=== PATIENT | male | born 1995 | race Caucasian/White ===

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

== ENCOUNTER 2017-07-18 18:59 | Emergency (ER) | payer BC, OTHER ==
[~2017-07-18] VITALS: Ht 172.7 cm; Wt 93.7 kg
[~2017-07-18 18:59] MED LIST: AMPH10TA2 PO; AMPH20TA2 PO; CHOL1000 PO; CLON0.1T12 PO; ENAL10TA88 PO; MULT-506 PO; TRAZ100T29 PO
[2017-07-18 19:06] VITALS: TEMP 36.8; Ht 172.7 cm; Wt 93.7 kg
[2017-07-18] MEDS ORDERED: DULO60CA44 PO (19:17)
--- NOTE | 2017-07-18 19:40 | DIAGNOSTIC IMAGING REPORT ---
LEFT HAND 3 VIEWS CLINICAL HISTORY: Left thumb injury. FINDINGS: 3 views of left hand are obtained. No prior studies are available for comparison at the time of dictation. The skeletal structures are well mineralized. No fracture is seen. The joint spaces of the hand are well-maintained. The overlying soft tissues are within normal limits. IMPRESSION: Unremarkable radiographic assessment of the left hand. Electronically signed by: Rahlu Adams M.D. 07/18/2017 7:39 PM Dictated Date/Time: 07/18/2017 7:38 PM
--- NOTE | 2017-07-18 19:52 | EMERGENCY ROOM VISIT NOTE ---
ED Visit Note First contact with patient: 19:08 CHIEF COMPLAINT: Left thumb injury one hour ago Patient is a [id number] 21-year-old white male who presents emergency department for evaluation of a left thumb injury. He was playing soccer, the ball came towards his face, and he put his hand up to protect himself. The ball struck his thumb, causing it to hyperextend. Patient denies hearing a cracking, snapping or popping sound at the time of the injury. He notes pain and swelling in the thumb extending into the hand. He applied ice. He did not have any medication for pain. He rates his discomfort a 6/10. He can move the thumb relatively normally. REVIEW OF SYSTEMS: Review of systems as per HPI. All other systems reviewed were negative. At least 6 systems reviewed. PMH: Electronic medical records are reviewed and summarized as above/below. See Problem List. SOCIAL HISTORY: Patient is a college student who lives locally. Nonsmoker. PHYSICAL EXAM: Vital Signs: Reviewed Nurse's notes. CONSTITUTIONAL: Patient is a well-appearing 21-year-old white male who is awake and alert and in no acute distress. MUSCULOSKELETAL: Examination of the left hand show swelling in the thenar eminence, over the first metacarpal, slight swelling over the first MCP joint. Patient does not have any pain over the IP joint. His pain over the proximal phalanx, MCP and the first metacarpal. Range of motion is essentially full. There is no gross ligamentous instability appreciated. There is no deformity. The skin is intact. EMERGENCY DEPARTMENT COURSE: X-rays of the left thumb were obtained, and were negative for acute fracture or bony abnormality. Patient was placed in a thumb spica lacer. Conservative care measures were discussed. He was encouraged to follow-up with [facility] if his symptoms are not improving. Differential diagnosis included fracture, sprain, contusion, dislocation, subluxation, among others. Blood pressure screening : Patient was found to have normal blood pressure on screening and does not require follow-up. Medication reconciliation: I attest that I have personally reviewed the patient' s current medication list. LEFT HAND 3 VIEWS CLINICAL HISTORY: Left thumb injury. FINDINGS: 3 views of left hand are obtained. No prior studies are available for comparison at the time of dictation. The skeletal structures are well mineralized. No fracture is seen. The joint spaces of the hand are well-maintained. The overlying soft tissues are within normal limits. IMPRESSION: Unremarkable radiographic assessment of the left hand. Problem List Medical Problems: (1) Dehydration Status: Resolved (2) Essential (Primary) Hypertension Status: Chronic (3) Facial abrasion Status: Resolved (4) Personal History Of Traumatic Brain Injury Status: Chronic (5) Rhabdomyolysis Status: Resolved (6) Syncope Status: Resolved Current/Historical Medications Scheduled Amphetamine-Dextroamphetamine 10MG (Adderall 10MG), 10 MG PO 1600 Amphetamine-Dextroamphetamine 20MG (Adderall 20MG), 40 MG PO DAILY Cholecalciferol (Vitamin D3), 500 UNITS PO DAILY Clonidine Hcl (Catapres), 1 TAB PO DIRECTED Duloxetine Hcl (Cymbalta), 60 MG PO DAILY Enalapril (Vasotec), 30 MG PO DAILY Multivitamin (Multivitamin), 1 TAB PO DAILY Trazodone Hcl (Trazodone), 100 MG PO HS Allergies Coded Allergies: Fluticasone (Unverified Allergy, Unknown, heart races, 11/05/16) Salmeterol (Unverified Allergy, Unknown, heart races, 11/05/16) Vital Signs Date Time Temp Pulse Resp B/P (MAP) Pulse Ox O2 Delivery O2 Flow Rate FiO2 07/18/17 20:04 74 20 122/70 98 07/18/17 19:06 36.8 102 18 134/75 98 Room Air Departure Information Impression Primary Impression: Left thumb sprain Referrals No Doctor, Assigned (PCP) Darion Ramirez MD Patient Instructions [facility] Additional Instructions Ibuprofen(Motrin, Advil) may be used for fever or pain. Use 600mg every six hours as needed. Take with food. Avoid using more than 2400mg in a 24 hour period. Do not use 2400mg per day for more than three consecutive days without physician direction. Prolonged inappropriate use can lead to stomach upset or ulcers. This medication can be taken if you need to drive, work, or perform activities which may be dangerous when taking narcotic pain medication. (AND/OR) Acetaminophen(Tylenol) may be used for fever or pain. Use 1000mg every six hours as needed. Avoid using more than 3000mg in a 24 hour period. This medication can be taken if you need to drive, work, or perform activities which may be dangerous when taking narcotic pain medication. Ice compresses for 20 minutes at a time four times daily for 2-3 days. Use the splint as instructed. Rest and elevate your injury. May gradually return to normal activity as your pain allows. Continue current medications. Return to the ER immediately for any numbness, tingling, severe pain, extreme swelling in the extremity or as needed. Followup with [facility] or with [facility] if your symptoms are not improving in the next 5-7 days.
[2017-07-18 20:04] VITALS: BP 122/70; PULSE 74; O2SAT 98
== END 2017-07-18 20:04 | disposition home or self-care (01) ==
LOC: C.EDB 19:01 → C.EDD 20:04
DX: S63.602A Unspecified sprain of left thumb, initial encounter (principal); W21.02XA Struck by soccer ball, initial encounter; I10 Essential (primary) hypertension

== ENCOUNTER 2018-10-28 11:20 | Observation (INO) ==
[2018-10-28] MEDS ORDERED: LEVALBUTEROL 1.25MG/0.5ML NEB INH SCH ×3 (12:15→23:00)
[2018-10-28] MEDS ORDERED: IPRATROPIUM BROMIDE NEB SOLN 0.02% 2.5 ML VIAL INH SCH ×2 (12:15→16:45)
[2018-10-28] MEDS ORDERED: XOPENEX/ATROVENT 1.25mg/0.5MG NEB COMBO NEB ONE (12:16)
[2018-10-28] MEDS ORDERED: cloNIDine HCl 0.1 MG TAB PO ONE (13:17)
[2018-10-28] MEDS ORDERED: ENALAPRIL MALEATE 10 MG TAB PO ONE (13:19)
[2018-10-28] MEDS ORDERED: HYDROCODONE/HOMATROPINE SYRUP 5MG/1.5MG 5ML UDP PO STA (13:59)
--- NOTE | 2018-10-28 14:22 | Emergency Department Note ---
ED Visit Note Discussed with patient at bedside all results. No wheezing noted on repeat lung exam, slightly coarse. No hypoxia. Pt concerned about persistent trouble breathing. 0400: I spoke with mom at bedside for a significant amount of time. 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 Ordered decadron, tylenol for fever, and additional neb tx. 0450: Discussed with Dr. Arreola. .
[2018-10-28] MEDS ORDERED: DEXAMETHASONE **PF** INJ 10 MG/ML VIAL PO ONE (14:40)
[2018-10-28] MEDS ORDERED: ACETAMINOPHEN 325 MG TAB PO STA (14:41)
[2018-10-28] MEDS ORDERED: DULOXETINE HCL 60 MG CAP PO ONE (14:45)
[2018-10-28] MEDS ORDERED: XOPENEX/ATROVENT 1.25mg/0.5MG NEB COMBO NEB STA (16:39)
--- NOTE | 2018-10-28 17:24 | Emergency Department Note ---
History of Present Illness General Chief complaint: Asthma Stated complaint: DIFFICULTY BREATHING,ASTHMA,BRONCHITIS Time Seen by Provider: 10/28/18 11:51 History of Present Illness 23-year-old male who presents to the emergency department for reevaluation of difficulty breathing, asthma exacerbation and diagnosis of bronchitis. The patient was in our emergency department earlier this morning with symptoms. The patient underwent lab work and chest x-ray were normal. He was treated with Xopenex and Atrovent, and provided prescriptions for these, as well as received a Hycodan home pack and prescription. The patient was seen by Dr. Springer this morning, and referred back to the emergency department for persistent symptoms. The patient has not noticed any fever or chills, back pain , chest pain, headache, nausea or vomiting. The patient recently traveled to [place] and back for [facility] sports. An trainer is also with the patient today. Home Medications Home Medications Medication Instructions Recorded Confirmed Type azithromycin 250 mg PO DAILY 4 Days #4 tab 10/28/18 10/28/18 Rx clonidine HCl 0.5 mg PO AMPM 10/28/18 10/28/18 History dextroamphetamine-amphetamine 40 mg PO QAM 10/28/18 10/28/18 History [Adderall XR] duloxetine [Cymbalta] 60 mg PO QAM 10/28/18 10/28/18 History enalapril maleate 30 mg PO QAM 10/28/18 10/28/18 History ipratropium bromide [Atrovent HFA] 1 puff INHALATION QID PRN 10/28/18 10/28/18 History levalbuterol tartrate [Xopenex HFA] 2 inh INHALATION Q6H PRN 10/28/18 10/28/18 History multivitamin [Multiple Vitamins] 1 tab PO DAILY 10/28/18 10/28/18 History trazodone 50 - 100 mg PO HS 10/28/18 10/28/18 History Allergies Allergy/AdvReac Type Severity Reaction Status Date / Time fluticasone AdvReac Unknown heart races Verified 10/28/18 11:38 salmeterol AdvReac Unknown heart races Verified 10/28/18 11:38 Past Med/Surg History Medical History HTN (hypertension), benign Sleep disorder TBI (traumatic brain injury) Asthma (Chronic) Surgical History History of inguinal hernia repair, bilateral History of orchiectomy, unilateral History of tonsillectomy and adenoidectomy Status post repair of hydrocele Family History Mother HTN (hypertension), benign Prediabetes Father HTN (hypertension), benign Anxiety SVT (supraventricular tachycardia) Sister POTS (postural orthostatic tachycardia syndrome) Anxiety Brother Asthma Uncle Heart attack, Onset Age: 44 Grandmother (Paternal) , from cardiac arrest during severe asthma exacerbation, age 55 Asthma Social History marital status: Single Current Living Situation: Alone current occupational status: student 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 Denies difficulty swallowing or oral lesions. PULMONARY: See HPI. CARDIOVASCULAR: Denies chest pain, palpitations, dyspnea on exertion, orthopnea or peripheral edema. GASTROINTESTINAL: Denies diarrhea, constipation, nausea, vomiting, or abdominal pain. GENITOURINARY: Denies dysuria, frequency, urgency or nocturia. NEUROLOGIC: Denies history of epilepsy, CVA, TIA or chronic headaches. MUSCULOSKELETAL: Denies history of joint tenderness/swelling. SKIN: Denies rashes or lesions. PSYCHIATRIC: Denies history of depression or mental illness. ENDOCRINE: Denies history of diabetes or thyroid disorders. Physical Exam Vital Signs Vital Signs - 24 hr 10/28/18 23:23 10/28/18 23:26 10/28/18 23:56 Temperature 36.8 C Temperature Source Oral Pulse Rate [Right Finger] 68 60 Respiratory Rate 20 16 Respiratory Effort / Characteristics Non-Labored Spontaneous Respiratory Depth Respiratory Pattern Blood Pressure [Left Arm] 125/73 Blood Pressure [Right Arm] 129/68 Blood Pressure Mean [Left Arm] 90 Blood Pressure Mean [Right Arm] 88 Blood Pressure Position [Left Arm] Lying Blood Pressure Position [Right Arm] Lying Pulse Oximetry 97 97 Oxygen Delivery Method Room Air Room Air 10/29/18 07:12 10/29/18 07:14 10/29/18 11:24 Temperature 36.6 C Temperature Source Oral Pulse Rate [Right Finger] 52 L 53 L Respiratory Rate 14 18 Respiratory Effort / Characteristics Non-Labored Spontaneous Non-Labored Respiratory Depth Normal Respiratory Pattern Regular Blood Pressure [Left Arm] Blood Pressure [Right Arm] 109/66 Blood Pressure Mean [Left Arm] Blood Pressure Mean [Right Arm] 80 Blood Pressure Position [Left Arm] Blood Pressure Position [Right Arm] Lying Pulse Oximetry 97 98 Oxygen Delivery Method Room Air Room Air 10/29/18 14:09 10/29/18 14:50 10/29/18 16:00 Temperature 36.7 C Temperature Source Oral Pulse Rate [Right Finger] 56 L 87 Respiratory Rate 16 18 Respiratory Effort / Characteristics Non-Labored Spontaneous Non-Labored Respiratory Depth Normal Respiratory Pattern Regular Blood Pressure [Left Arm] Blood Pressure [Right Arm] 104/54 L Blood Pressure Mean [Left Arm] Blood Pressure Mean [Right Arm] 70 Blood Pressure Position [Left Arm] Blood Pressure Position [Right Arm] Lying Pulse Oximetry 97 97 Oxygen Delivery Method Room Air Room Air Room Air 10/29/18 19:18 10/29/18 20:08 10/29/18 22:57 Temperature 36.7 C Temperature Source Oral Pulse Rate [Right Finger] 90 85 71 Respiratory Rate 25 H 18 Respiratory Effort / Characteristics Non-Labored Spontaneous Respiratory Depth Respiratory Pattern Blood Pressure [Left Arm] 127/61 Blood Pressure [Right Arm] 125/62 Blood Pressure Mean [Left Arm] 83 Blood Pressure Mean [Right Arm] 83 Blood Pressure Position [Left Arm] Blood Pressure Position [Right Arm] Lying Pulse Oximetry 96 95 Oxygen Delivery Method Room Air Room Air 10/29/18 23:01 Temperature Temperature Source Pulse Rate [Right Finger] 61 Respiratory Rate 20 Respiratory Effort / Characteristics Non-Labored Respiratory Depth Respiratory Pattern Blood Pressure [Left Arm] Blood Pressure [Right Arm] Blood Pressure Mean [Left Arm] Blood Pressure Mean [Right Arm] Blood Pressure Position [Left Arm] Blood Pressure Position [Right Arm] Pulse Oximetry 98 Oxygen Delivery Method Room Air CONSTITUTIONAL: Healthy and well nourished. Alert and oriented X 3 with positive affect. Patient has a mild cough, but does not appear in any acute respiratory distress. HEENT: Normocephalic, atraumatic. Pupils equal, round and reactive. No scleral icterus or conjunctival injection. No rhinorrhea. Examination of the oropharynx does not show any tonsillar hypertrophy or exudates. NECK: Full active range of motion without discomfort. LYMPHATICS: No cervical chain adenopathy. RESPIRATORY: Patient has coarse breath sounds bilaterally with no wheezing, crackles, significant rhonchi or stridor. CARDIOVASCULAR: Regular rate and rhythm with no murmurs, rubs or gallops. GASTROINTESTINAL: Bowel sounds present in all quadrants. Soft and nontender to palpation. MUSCULOSKELETAL: Full range of motion of all joints without discomfort. INTEGUMENTARY: No rash or other significant dermatologic conditions noted. HEMATOLOGIC: No ecchymosis or petechiae. PSYCHIATRIC: Positive affect. NEUROLOGIC: No focal neurologic deficits noted. Course Patient history and physical exam were performed. Nurse's notes were reviewed. Vital signs were reviewed, showing an oral temperature of 38.1 C. Pulse rate was 104. He is otherwise normotensive, and O2 saturation is 95% on room air. I also reviewed documentation from the patient's ER visit earlier this morning. The patient had lab work performed that was normal, including an influenza screen. Chest x-ray was performed and was normal. The patient was administered a Xopenex and Atrovent breathing treatment, and again received prescriptions at home packs for inhalers and Hycodan cough syrup. The patient was also administered Tylenol for his fever. The patient reports that he cannot tolerate albuterol, which was prescribed to him by Dr. Springer. He also reports that he develops hallucinations with corticosteroids, and refused them this morning while in the emergency department. Because the patient has had an extensive workup this morning, I did recommend administering another Xopenex/Atrovent breathing treatment, and the patient was in agreement. The patient also contacted his mother regarding his current situation, and I also spoke with the mother on the phone. The mother initially reported that she had plan to come picking belt operator the patient and take him back home to [place]. She is concerned because he currently has a pediatric mechanical systems design engineer for his asthma, and is concerned that he may not do well on his own because he has a history of TBI. She confirms that the patient had significant hallucinations with prior use of prednisone. She wanted to know if we could provide a prescription for a home nebulizer, then stated that since I am a physician assistant chief train dispatcher, I probably could not prescribe it anyway. Mother then reported that she has a nebulizer at home, and could bring it to the hospital for use. I explained that our attending physician could certainly provide this prescription for a home nebulizer,, and we could also provide supplies for his nebulizer. I did recommend that the mother called the patient' s mechanical systems design engineer to see if we could provide him with a dose of IV Decadron. She reported that she would call the mechanical systems design engineer and then call us back. I was then advised by the nurse that the mother wanted to speak with my attending physician, and not the physician assistant chief train dispatcher. She and her were on their way to [place]. At this point, the patient was stable. He was provided some Hycodan cough syrup at his request. I then discussed the case further with Dr. Mixon, my ED attending physician, who spoke with the mother upon her arrival. The patient was administered an additional Xopenex/Atrovent nebulizer treatment. The case was further discussed with Dr. Arreola, hospitalist who came to the emergency department for further evaluation. Please see her dictation for further treatment and final disposition. Administered Medications Amphetamine/Dextroamphetamine (Adderall Xr) 40 mg PO QAM [facility] Stop: 11/12/18 08:59 Last Admin: 10/29/18 08:23 Dose: Not Given Clonidine HCl (Catapres) 0.25 mg PO BID [facility] Stop: 11/27/18 20:48 Last Admin: 10/29/18 20:09 Dose: 0.25 mg Admin: 10/29/18 08:19 Dose: 0.25 mg Admin: 10/29/18 03:06 Dose: Not Given Admin: 10/28/18 23:35 Dose: 0.25 mg Duloxetine HCl (Cymbalta) 60 mg PO QAM [facility] Stop: 11/28/18 08:59 Last Admin: 10/29/18 08:21 Dose: 60 mg Enalapril Maleate (Vasotec) 30 mg PO QAM [facility] Stop: 11/28/18 08:59 Last Admin: 10/29/18 08:22 Dose: 30 mg Hydrocodone Bit/Homatropine Methylb (Hycodan) 5 ml PO Q6H PRN; Protocol PRN Reason: Cough Stop: 11/11/18 20:48 Last Admin: 10/29/18 20:12 Dose: 5 ml Admin: 10/29/18 14:46 Dose: 5 ml Admin: 10/29/18 07:09 Dose: 5 ml Admin: 10/28/18 22:34 Dose: 5 ml Ipratropium [place] (Atrovent 0.02% 0.5mg/2.5ml) 0.5 mg INH Q6R [facility] Stop: 11/28/18 01:59 Last Admin: 10/29/18 19:16 Dose: 0.5 mg Admin: 10/29/18 14:08 Dose: 0.5 mg Admin: 10/29/18 07:11 Dose: 0.5 mg Admin: 10/29/18 01:12 Dose: Not Given Ipratropium [place] (Atrovent 0.02% 0.5mg/2.5ml) 0.5 mg INH TODAY@2300 [facility] Stop: 11/27/18 22:59 Last Admin: 10/29/18 22:59 Dose: 0.5 mg Admin: 10/28/18 23:53 Dose: 0.5 mg Levalbuterol HCl (Xopenex 1.25mg/0.5ml Neb) 1.25 mg INH Q6R [facility] Stop: 11/28/18 01:59 Last Admin: 10/29/18 22:59 Dose: 1.25 mg Admin: 10/29/18 19:15 Dose: 1.25 mg Admin: 10/29/18 14:07 Dose: 1.25 mg Admin: 10/29/18 07:11 Dose: 1.25 mg Admin: 10/29/18 01:12 Dose: Not Given Multivitamins (Multivitamin Tab) 1 tab PO DAILY [facility] Stop: 11/28/18 08:59 Last Admin: 10/29/18 08:22 Dose: 1 tab Oseltamivir Phosphate (Tamiflu) 75 mg PO BID [facility] Stop: 11/03/18 00:44 Last Admin: 10/29/18 20:11 Dose: 75 mg Admin: 10/29/18 08:22 Dose: 75 mg Admin: 10/29/18 01:31 Dose: 75 mg Trazodone HCl (Desyrel) 50 mg PO HS [facility]ESS[facility] Stop: 11/27/18 20:59 Last Admin: 10/29/18 20:10 Dose: 50 mg Admin: 10/29/18 03:06 Dose: Not Given Discontinued Medications Acetaminophen (Tylenol) 650 mg PO NOW STA Stop: 10/28/18 14:42 Last Admin: 10/28/18 14:54 Dose: 650 mg Clonidine HCl (Catapres) 0.5 mg PO NOW ONE Stop: 10/28/18 13:18 Last Admin: 10/28/18 13:56 Dose: 0.25 mg Dexamethasone (Decadron) 8 mg PO QAM [facility] Stop: 10/29/18 09:01 Last Admin: 10/29/18 08:21 Dose: 8 mg Dexamethasone Sodium Phosphate (Decadron Pf) 10 mg PO NOW ONE Stop: 10/28/18 14:41 Last Admin: 10/28/18 14:54 Dose: 10 mg Duloxetine HCl (Cymbalta) 60 mg PO ONE ONE Stop: 10/29/18 13:20 Last Admin: 10/28/18 13:55 Dose: 60 mg Duloxetine HCl (Cymbalta) 60 mg PO ONE ONE Stop: 10/28/18 14:46 Last Admin: 10/28/18 14:55 Dose: Not Given Enalapril Maleate (Vasotec) 30 mg PO ONE ONE Stop: 10/28/18 13:20 Last Admin: 10/28/18 13:55 Dose: 30 mg Hydrocodone Bit/Homatropine Methylb (Hycodan) 5 ml PO NOW STA Stop: 10/28/18 14:00 Last Admin: 10/28/18 14:39 Dose: 5 ml Ipratropium [place] (Atrovent 0.02% 0.5mg/2.5ml) 0.5 mg INH UD JESSY Stop: 11/27/18 12:14 Last Admin: 10/28/18 12:41 Dose: 0.5 mg Levalbuterol HCl (Xopenex 1.25mg/0.5ml Neb) 1.25 mg INH UD JESSY Stop: 11/27/18 12:14 Last Admin: 10/28/18 12:41 Dose: 1.25 mg Levalbuterol HCl (Xopenex 1.25mg/0.5ml Neb) 1.25 mg INH TODAY@2300 [facility] Stop: 10/28/18 23:01 Last Admin: 10/28/18 23:53 Dose: 1.25 mg Menthol (Nice) Confirm Administered Dose 24 courtney BUCCAL .STK-MED ONE Stop: 10/29/18 01:43 Last Admin: 10/29/18 03:07 Dose: 24 courtney Miscellaneous (Levalbuterol/Ipratropium 1.25mg) 1 ea NEB ONE ONE Stop: 10/28/18 12:17 Last Admin: 10/28/18 12:41 Dose: Not Given Miscellaneous (Levalbuterol/Ipratropium 1.25mg) 1 ea NEB NOW STA Stop: 10/28/18 16:40 Last Admin: 10/28/18 17:06 Dose: 1 ea Medical Decision Making Medical Records Attestation: I reviewed the patient's medical records. Home Medications Current Medication List: was personally reviewed by me Laboratory Data Attestation: I reviewed the patient's lab results. Lab Results 10/28/18 Range/Units 18:40 Influenza Type A (PCR) Pos for Influ A A* (Neg) Influenza Type B (PCR) Neg for Influ B (Neg) Imaging Data Attestation: I personally reviewed and interpreted this imaging study as follows : My Impression: My interpretation of the chest x-ray this morning does not show any consolidations or pneumothorax. Radiologist report was also reviewed from this morning. Blood Pressure Blood Pressure Findings: Normal blood pressure MDM Narrative As indicated in the previous ED Course section, the patient reports difficulty breathing, although the patient did not appear in any acute respiratory distress while in the emergency department. He has maintained his O2 saturations throughout his stay. The patient did receive 2 Xopenex/Atrovent nebulizer treatments. The mother is concerned that the patient would be unable to treat himself at home given his prior history of severe TBI, and has requested hospital observation. Impression & Plan Asthma with acute exacerbation, Acute upper respiratory infection Discharge Plan Visit Data *Final* Discharge Date/Time: 10/28/18 18:49 Chief Complaint: Asthma Stated Complaint: DIFFICULTY BREATHING,ASTHMA,BRONCHITIS ED Provider: Sakina Mixon ED Midlevel Provider: Clay Fleming Discharge Problem: Asthma with acute exacerbation, Acute upper respiratory infection Patient Disposition: Admitted As Inpatient Discharge Instructions Interventions: ED Discharge Assessment Last Done: 10/28/18 18:49
--- NOTE | 2018-10-28 18:37 | History & Physical Report ---
Date of Service October 28, 2018 Assessment & Plan (1) Asthma with acute exacerbation: This patient is a 23-year-old male with a history of asthma, severe TBI, sleep disorder, HTN, who presented to the ER for the second time within a 12- hour period for an asthma exacerbation. He was seen last night in the ER and was given nebulizer treatments and sent home with azithromycin and refill of his inhalers. However, due to his TBI, his mom reports that he has trouble managing his medications at home especially when he is sick. He also has a history of hallucinations with taking prednisone and so this was avoided last evening. He came back into the ER after seeing the sports medicine team physician (he is the "[employer]" for [employer]) who was concerned about his respiratory distress. His labs were reviewed from last night and showed a monocytosis, his chest x- ray was negative for pneumonia. He did spike a fever while in the ER today and was given Tylenol. He also complains of a sore throat. Flu antigen negative and Flu PCR + for Flu A. His pulse ox at the lowest was 95% on room air, but due to his respiratory distress and inability to manage his health at home due to his TBI, his mother was very concerned and he will be admitted for overnight observation. -Admit to medical floor -Exacerbation brought on by Influenza A -continue ONLY Levalbuterol and Atrovent nebs scheduled (mom reports he cannot take albuterol and MUST have atrovent) -received a dose of po dexamethasone in ER 10mg. Observe for psychosis which he has had before -if no psychosis, dex 8mg po is ordered in the AM -needs to get established with a local Belt Sewer -in the past has not been able to tolerate any LABAs, but should likely go out on ICS alone -give hycodan cough syrup prn (2) Influenza A: Rapid antigen test neg, but PCR test + for Flu A -Given underlying severe asthma exacerbation, will opt to treat him Tamiflu 75mg po bid x 5 day course -supportive care -APAP for fevers -ok to dc azithromycin prescribed in the ER last night (took one dose) -Given sore throat, Rapid Strep was ordered before Flu test came back positive-- > f/u on rapid Strep test however most likely pharyngitis from influenza (3) Fever: secondary to influenza -APAP prn (4) Sleep disorder: Has severe insomnia -must have trazadone 50-100mg po qhs (5) HTN (hypertension), benign: Diagnosed at age 8, thought to be secondary to renovascular issues from a 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 -continue enalapril 30mg daily, clonidine 0.25mg po bid -observe BPs (6) TBI (traumatic brain injury): H/o severe TBI as per mom -supportive care, does have issues with focus and memory -continue Adderal, duloxetine (7) DVT prophylaxis: SCDs Dispo-admit to medical floor for observation, possible dc to home tomorrow History of Present Illness Chief Complaint: Asthma attack Primary Care Provider: Selam López This patient is a 23-year-old male with a history of asthma, severe TBI, sleep disorder, HTN, who presented to the ER for the second time within a 12-hour period for an asthma exacerbation. He was seen last night in the ER and was given nebulizer treatments and sent home with azithromycin and refill of his inhalers. However, due to his TBI, his mom reports that he has trouble managing his medications at home especially when he is sick. He also has a history of hallucinations with taking prednisone and so this was avoided last evening. He came back into the ER after seeing the sports medicine team physician (he is the "[employer]" for [employer]) who was concerned about his respiratory distress. His labs were reviewed from last night and showed a monocytosis, his chest x- ray was negative for pneumonia. He did spike a fever while in the ER today and was given Tylenol. He also complains of a sore throat. Flu antigen negative and Flu PCR will be ordered. His pulse ox at the lowest was 95% on room air, but due to his respiratory distress and inability to manage his health at home due to his TBI, his mother was very concerned and he will be admitted for overnight observation. Allergies Allergy/AdvReac Type Severity Reaction Status Date / Time fluticasone AdvReac Unknown heart races Verified 10/28/18 11:38 salmeterol AdvReac Unknown heart races Verified 10/28/18 11:38 Home Medications Home Medications Medication Instructions Recorded Confirmed Type azithromycin 250 mg PO DAILY 4 Days #4 tab 10/28/18 10/28/18 Rx clonidine HCl 0.5 mg PO AMPM 10/28/18 10/28/18 History dextroamphetamine-amphetamine 40 mg PO QAM 10/28/18 10/28/18 History [Adderall XR] duloxetine [Cymbalta] 60 mg PO QAM 10/28/18 10/28/18 History enalapril maleate 30 mg PO QAM 10/28/18 10/28/18 History ipratropium bromide [Atrovent HFA] 1 puff INHALATION QID PRN 10/28/18 10/28/18 History levalbuterol tartrate [Xopenex HFA] 2 inh INHALATION Q6H PRN 10/28/18 10/28/18 History multivitamin [Multiple Vitamins] 1 tab PO DAILY 10/28/18 10/28/18 History trazodone 50 - 100 mg PO HS 10/28/18 10/28/18 History Past Med/Surg History Medical History HTN (hypertension), benign Sleep disorder TBI (traumatic brain injury) Asthma (Chronic) Surgical History History of inguinal hernia repair, bilateral History of orchiectomy, unilateral History of tonsillectomy and adenoidectomy Status post repair of hydrocele Family History Mother HTN (hypertension), benign Prediabetes Father HTN (hypertension), benign Anxiety SVT (supraventricular tachycardia) Sister POTS (postural orthostatic tachycardia syndrome) Anxiety Brother Asthma Uncle Heart attack, Onset Age: 44 Grandmother (Paternal) , from cardiac arrest during severe asthma exacerbation, age 55 Asthma Social History marital status: Single Current Living Situation: Alone current occupational status: student 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 [employer] Feels Safe at Home: Yes Safety Concerns: Feels Safe At This Time Smoking Status: Never smoker Do You Dip or Chew Tobacco: No Second Hand Exposure: No Hx Alcohol Use: No Hx Substance Use: No Beliefs That Will Affect Care: None Preferred Language: Lithuanian Communication Ability: Effective Director Learning Required: No Review of Systems All systems reviewed & are unremarkable except as noted in HPI & below (no abd pain, no diarrhea,+sore throat, no neck pain or stiffness) Physical Exam 2 Vital Signs (Past 24 Hours): Last Vital Signs Temp 36.7 C 10/28/18 16:33 Pulse 70 10/28/18 18:28 Resp 17 10/28/18 18:28 BP 131/59 L 10/28/18 18:28 Pulse Ox 96 10/28/18 18:28 Constitutional: WD/WN, vitals as above Eyes: PERRL, conjunctivae normal, anicteric sclerae ENMT: external ear and nose normal, oropharynx normal Neck: trachea midline, no thyromegaly Respiratory: no respiratory distress and no labored breathing Auscultation : + wheezes (mild exp wheezes in lower lung bowen, otherwise clear) Cardiovascular: RRR, no murmur, no edema Gastrointestinal (Abdomen): normal bowel sounds, soft, nontender, no hepatosplenomegaly Musculoskeletal: Extremities: extremities normal to inspection; no cyanosis and no clubbing Skin: no rashes +diaphoresis Neurologic: moves all extremities and awake; no focal motor deficits Psychiatric: A+Ox3, euthymic affect Lymphatic: + cervical lymphadenopathy (left posterior cervical) Results & Data Laboratory Results 10/28/18 Range/Units 18:40 Influenza Type A (PCR) Pos for Influ A A* (Neg) Influenza Type B (PCR) Neg for Influ B (Neg) Diagnostic Findings CXR image from last ER visit on 10/28/18 personally reviewed by me and agree with the following report: XR chest 1V portable CLINICAL HISTORY: Shortness of breath COMPARISON STUDY: No previous studies for comparison. FINDINGS: The cardiac and mediastinal contours are normal. There is no evidence of focal pulmonary consolidation. There is no evidence of failure. No pleural effusions are visualized.[ IMPRESSION: No active disease in the chest. Code Status & VTE Plan Code Status FULL CODE VTE Prophylaxis Plan VTE Prophylaxis will be ordered: Yes _ (1) TBI (traumatic brain injury) Encounter type: sequela (2) Asthma with acute exacerbation Asthma persistence: Asthma severity: (3) Fever Fever type: due to other condition Qualified Code(s): R50.81 - Fever presenting with conditions classified elsewhere
[2018-10-28 19:20] LABS: Influenza B virus by PCR Neg for Influ B (Neg)
[2018-10-28] MEDS ORDERED: ACETAMINOPHEN 325 MG TAB PO PRN (20:49)
[2018-10-28] MEDS ORDERED: XOPENEX/ATROVENT 1.25mg/0.5MG NEB COMBO NEB SCH (20:49)
[2018-10-28] MEDS ORDERED: ALUMINUM/MAGNESIUM SUSP 30 ML UDC PO PRN (20:49)
[2018-10-28] MEDS ORDERED: Nursing to Pharmacy Communication ONE (22:25)
[2018-10-28] MEDS: HYDROCODONE/HOMATROPINE SYRUP 5MG/1.5MG 5ML UDP PO PRN (22:34)
[2018-10-28] MEDS: cloNIDine HCl 0.1 MG TAB PO SCH ×2 (23:20→23:35)
[2018-10-28] MEDS: IPRATROPIUM BROMIDE NEB SOLN 0.02% 2.5 ML VIAL INH SCH (23:53)
[2018-10-29] MEDS: IPRATROPIUM BROMIDE NEB SOLN 0.02% 2.5 ML VIAL INH SCH ×5 (01:12→22:59)
[2018-10-29] MEDS: LEVALBUTEROL 1.25MG/0.5ML NEB INH SCH ×5 (01:12→22:59)
[2018-10-29] MEDS: OSELTAMIVIR PHOSPHATE 75 MG CAP PO SCH ×3 (01:31→20:11)
[2018-10-29] MEDS ORDERED: COUGH DROP (SUGAR FREE) LOZ 24 LOZ/1 BOX BUCCAL PRN (01:38)
[2018-10-29] MEDS ORDERED: COUGH DROP (SUGAR FREE) LOZ 24 LOZ/1 BOX BUCCAL ONE (01:42)
[2018-10-29] MEDS: cloNIDine HCl 0.1 MG TAB PO SCH ×3 (03:06→20:09)
[2018-10-29] MEDS: TRAZODONE HCL 50 MG TAB PO SCH ×2 (03:06→20:10)
[2018-10-29] MEDS: HYDROCODONE/HOMATROPINE SYRUP 5MG/1.5MG 5ML UDP PO PRN ×3 (07:09→20:12)
[2018-10-29] MEDS: DULOXETINE HCL 60 MG CAP PO SCH (08:21)
[2018-10-29] MEDS: ENALAPRIL MALEATE 10 MG TAB PO SCH (08:22)
[2018-10-29] MEDS: MULTIVITAMIN TAB PO SCH (08:22)
[2018-10-29] MEDS: AMPHETAMINE ASP/SULF/DEXTRAMPH ER 20 MG CAP PO SCH (08:23)
[2018-10-29] MEDS ORDERED: dexAMETHasone 4 MG TAB PO SCH (09:00)
[2018-10-29] MEDS ORDERED: DULOXETINE HCL 60 MG CAP PO ONE (13:19)
--- NOTE | 2018-10-29 15:03 | Hospitalist Progress Note ---
Date of Service October 29, 2018 Assessment & Plan (1) Asthma with acute exacerbation: Exacerbation brought on by Influenza A. - Continue levalbuterol and Atrovent nebs scheduled - Continue dexamethasone as he did not have a bad reaction to it - Hycodan cough syrup prn - Continue Tamiflu x 5 days - Discharge on inhaled corticosteroid as he cannot tolerate LABA (2) Influenza A: Rapid antigen test neg, but PCR test + for Flu A. - Plan as above (3) Sleep disorder: Has severe insomnia. 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 - Continue enalapril 30mg daily & clonidine 0.25mg po bid - Monitor BPs - As of 10/29, BPs have been normal (5) TBI (traumatic brain injury): H/o severe TBI as per mom. Supportive care, does have issues with focus and memory. - Continue Adderal & duloxetine (6) DVT prophylaxis: SCDs - Low risk patient Subjective 23yo M w/ hx of TBI and asthma who presents with influenza A and asthma exacerbation. Reports improved breathing, but still somewhat short of breath. No major wheezing. Reports no fevers/chills, chest pain, abdominal pain, nausea, or vomiting. Physical Exam 2 Vital Signs (Past 24 Hours): Last Vital Signs Temp 36.7 C 10/29/18 14:50 Pulse 87 10/29/18 14:50 Resp 18 10/29/18 14:50 BP 104/54 L 10/29/18 14:50 Pulse Ox 97 10/29/18 14:50 Constitutional: WD/WN, vitals as above Eyes: PERRL, conjunctivae normal, anicteric sclerae ENMT: external ear and nose normal, oropharynx normal Neck: trachea midline, no thyromegaly Respiratory: no respiratory distress and no labored breathing Auscultation : no rales, no rhonchi and no wheezes Cardiovascular: RRR, no murmur, no edema Gastrointestinal (Abdomen): normal bowel sounds, soft, nontender, no hepatosplenomegaly Musculoskeletal: Extremities: extremities normal to inspection; no cyanosis and no clubbing Skin: no rashes Neurologic: moves all extremities and awake; no focal motor deficits Psychiatric: A+Ox3, euthymic affect Lymphatic: + cervical lymphadenopathy (left posterior cervical) _ (1) Asthma with acute exacerbation Asthma persistence: Asthma severity: (2) TBI (traumatic brain injury) Encounter type: sequela Loss of consciousness presence/duration:
[2018-10-30] MEDS: IPRATROPIUM BROMIDE NEB SOLN 0.02% 2.5 ML VIAL INH SCH ×2 (01:53→07:11)
[2018-10-30] MEDS: LEVALBUTEROL 1.25MG/0.5ML NEB INH SCH ×2 (01:53→07:11)
[2018-10-30] MEDS: HYDROCODONE/HOMATROPINE SYRUP 5MG/1.5MG 5ML UDP PO PRN (05:41)
[2018-10-30] MEDS: ENALAPRIL MALEATE 10 MG TAB PO SCH (08:37)
[2018-10-30] MEDS: OSELTAMIVIR PHOSPHATE 75 MG CAP PO SCH (08:39)
[2018-10-30] MEDS: DULOXETINE HCL 60 MG CAP PO SCH (08:39)
[2018-10-30] MEDS: cloNIDine HCl 0.1 MG TAB PO SCH (08:39)
[2018-10-30] MEDS: MULTIVITAMIN TAB PO SCH (08:39)
[2018-10-30] MEDS: AMPHETAMINE ASP/SULF/DEXTRAMPH ER 20 MG CAP PO SCH (08:44)
[2018-10-30] MEDS ORDERED: dexAMETHasone 4 MG TAB PO ONE (08:50)
--- NOTE | 2018-11-01 21:07 | Discharge Summary ---
Date of Service November 01, 2018 Admission HPI Per Admitting Provider This patient is a 23-year-old male with a history of asthma, severe TBI, sleep disorder, HTN, who presented to the ER for the second time within a 12-hour period for an asthma exacerbation. He was seen last night in the ER and was given nebulizer treatments and sent home with azithromycin and refill of his inhalers. However, due to his TBI, his mom reports that he has trouble managing his medications at home especially when he is sick. He also has a history of hallucinations with taking prednisone and so this was avoided last evening. He came back into the ER after seeing the sports medicine team physician (he is the "[employer] Man" for [employer]) who was concerned about his respiratory distress. His labs were reviewed from last night and showed a monocytosis, his chest x- ray was negative for pneumonia. He did spike a fever while in the ER today and was given Tylenol. He also complains of a sore throat. Flu antigen negative and Flu PCR will be ordered. His pulse ox at the lowest was 95% on room air, but due to his respiratory distress and inability to manage his health at home due to his TBI, his mother was very concerned and he will be admitted for overnight observation. Principal Diagnosis Asthma exacerbation Discharge Exam Constitutional WD/WN, vitals as above Eyes PERRL, conjunctivae normal, anicteric sclerae ENMT external ear and nose normal, oropharynx normal Neck trachea midline, no thyromegaly Respiratory no respiratory distress and no labored breathing Auscultation: no rales, no rhonchi and no wheezes Cardiovascular RRR, no murmur, no edema Gastrointestinal (Abdomen) normal bowel sounds, soft, nontender, no hepatosplenomegaly Musculoskeletal Extremities: extremities normal to inspection; no cyanosis and no clubbing Skin no rashes Neurologic moves all extremities and awake; no focal motor deficits Psychiatric A+Ox3, euthymic affect Lymphatic + cervical lymphadenopathy (left posterior cervical) Discharge Data Allergies Allergy/AdvReac Type Severity Reaction Status Date / Time fluticasone AdvReac Unknown heart races Verified 10/28/18 11:38 salmeterol AdvReac Unknown heart races Verified 10/28/18 11:38 Consultations 10/28/18 17:31 ED Decision to Admit Stat Hospital Course (1) Asthma with acute exacerbation: Exacerbation brought on by Influenza A. - Got levalbuterol and Atrovent nebs scheduled - Tolerated dexamethasone, so continued that. - Continued Tamiflu x 5 days - Discharged on inhaled corticosteroid as he cannot tolerate LABA (2) Influenza A: Rapid antigen test neg, but PCR test + for Flu A. - Plan as above (3) Sleep disorder: Has severe insomnia. 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 - Continued enalapril 30mg daily & clonidine 0.25mg po bid - Monitor BPs - As of 10/29, BPs have been normal (5) TBI (traumatic brain injury): H/o severe TBI as per mom. Supportive care, does have issues with focus and memory. - Continued Adderal & duloxetine (6) DVT prophylaxis: SCDs - Low risk patient Total Time Total Time Spent Total Time Spent (In Minutes): 35 Discharge Plan Discharge Items Patient Disposition: Home - Self-Care Reason For Visit: ASTHMA EXACERBATION Discharge Diagnosis: Asthma exacerbation Discharge Goals: Decrease discomfort and Improve disease control Activity: Resume your previous activity Exercise/Sports: Gradually increase as tolerated Non-emergency contact: Primary Care Provider and Protocol Officer Call non-emergency contact if: you have any medication questions and your symptoms worsen Follow-up/Referrals: Kacy Ott PA-C [Physician Entry Level Administrative Assistant] - 11/08/18 9:55 am (Please, follow up at the [facility] with Dr. Kacy Ott PA-C on ThursdayNovember 08 at 10:15 am (arrive 9:55 am). *This office is located in [address] of [facility] near this [facility]. The address is [address] [place] [address] in [place]. If you need to change this appointment, call the office at [phone]. Be sure to bring your insurance card and a photo ID with you. ) Quincy Hart MD [Primary Care Provider] - 11/01/18 10:40 am (Please, follow up at [facility] with Dr. Quincy Hart on ThursdayNovember 01 at 10:40 am. *If you need to change this appointment, call the clinic at [phone].) Diet: Regular Addtl Provider Instructions: Mr. Mazariegos, You were admitted to the hospital with an asthma exacerbation due to the flu. We gave you breathing treatments and improved your breathing over the last 2 days. Please finish off the course of Decadron over the next 3 days. Use your breathing treatments as often as you need to up to every 6 hours. If you are using it every 6 hours and still not breathing safely, please return to the hospital. Please start the last 3 days of your Tamiflu tonight, then take the pills until they are gone. For cough, please continue to use cough drops to help with the sore throat and over the counter cough medication for any additional cough. Prescriptions: New oseltamivir [Tamiflu] 75 mg Capsule 75 mg PO BID Qty: 6 RF: 0 ipratropium bromide 0.02 % Solution 0.5 mg Inhalation Q6R Qty: 62.5 RF: 0 levalbuterol HCl 1.25 mg/0.5 mL Solution For Nebulization 1.25 mg Inhalation Q6R Qty: 30 RF: 0 dexamethasone [Decadron] 4 mg tablet 4 mg PO DAILY Qty: 3 RF: 0 fluticasone [Flovent HFA] 44 mcg/actuation HFA aerosol inhaler 1 inha INH BID Qty: 10.6 RF: 0 Continue dextroamphetamine-amphetamine [Adderall XR] 20 mg Capsule,Extended Release 24hr 40 mg PO QAM RF: 0 clonidine HCl 0.1 mg Tablet 0.5 mg PO AMPM RF: 0 duloxetine [Cymbalta] 60 mg Capsule,Delayed Release(Dr/Ec) 60 mg PO QAM RF: 0 enalapril maleate 20 mg Tablet 30 mg PO QAM RF: 0 levalbuterol tartrate [Xopenex HFA] 45 mcg/actuation Hfa Aerosol Inhaler 2 inh INHALATION Q6H PRN (Reason: Shortness Of Breath) RF: 0 ipratropium bromide [Atrovent HFA] 17 mcg/actuation Hfa Aerosol Inhaler 1 puff INHALATION QID PRN (Reason: Shortness Of Breath) RF: 0 trazodone 50 mg Tablet 50 - 100 mg PO HS RF: 0 multivitamin [Multiple Vitamins] Tablet 1 tab PO DAILY RF: 0 Discontinued azithromycin 250 mg tablet 250 mg PO DAILY 4 Days Qty: 4 RF: 0 Discharge Orders: Discharge Order (Routine); Ordered 10/30/18 Ordered By: Salazar Fountain Admission Data Admit Date/Time: 10/28/18 18:33 Attending Provider: Salazar Fountain Admit Provider: Lesley Arreola Primary Care Provider: Quincy Hart Other Providers: Salazar Fountain Service: Medical Other Interventions: Discharge Summary Assessment (RN) Last Done: 10/30/18 11:07 DC Date/Time DO NOT enter until pt leaves facility: 10/30/18 12:40
== END 2018-10-30 12:40 | disposition home or self-care (01) ==
LOC: ED 11:20 → 4E 11:20 → SUATTDRO 18:33 → 4E 18:49